=== PATIENT | female | born 1950 | race Two or more races ===

== ENCOUNTER 2018-11-13 16:17 | Emergency (ER) | payer SELFPAY ==
[~2018-11-13] VITALS: Ht 157.5 cm; Wt 53.1 kg
[2018-11-13 16:24] VITALS: BP 145/70
[2018-11-13 17:15] LABS: Basophils # (auto) 0.1 uL; Basophils % (auto) 0.6 % (0.0-2.0); Chloride 101 mmol/L (98-107); Eosinophils # (auto) 0.1 uL; Eosinophils % (auto) 0.4 % (0.0-7.0); Hematocrit 48.9 % (36.0-46.0); Hemoglobin 16.3 g/dL (12.2-16.2); Lymphocytes # (auto) 1.9 uL; Lymphocytes % (auto) 13.7 % (10.0-50.0); Mean Corpuscular Hemoglobin 29.3 pg (28.0-32.0); Mean Corpuscular Hgb Conc. 33.3 g/dL (32.0-36.0); Mean Corpuscular Volume 88.2 fL (80.0-100.0); Monocytes # (auto) 0.7 uL; Monocytes % (auto) 5.2 % (0.0-12.0); Neutrophils # (auto) 11.1 uL; Neutrophils % (auto) 80.1 % (37.0-80.0); Nucleated Red Blood Cells % 0.1 %; Platelet Count (auto) 371 10^3/uL (140-450); Potassium 3.5 mmol/L (3.5-5.1); Red Blood Cells 5.54 10^6/uL (4.0-5.20); Red Cell Distribution Width 13.5 % (11.8-14.3); Sodium 137 mmol/L (136-145); White Blood Cell 13.8 10^3/uL (4.4-10.8)
[2018-11-13 17:15] LABS: Urine Bacteria FEW /hpf (None Seen); Urine Blood Negative /uL (Negative); Urine WBC 55 /hpf (0 - 5)
[2018-11-13 17:18] LABS: Anion Gap 11 (5-15); Blood Urea Nitrogen 17 mg/dL (7-18); Calcium 8.9 mg/dL (8.5-10.1); Carbon Dioxide 25 mmol/L (21-32); Glucose 110 mg/dL (74-106)
[2018-11-13 17:23] LABS: Alanine Aminotransferase 43 U/L (13-56); Alkaline Phosphatase 84 U/L (45-117); Aspartate Aminotransferase 51 U/L (15-37); BUN/Creatinine Ratio 18.7; Bilirubin, Total 0.8 mg/dL (0.2-1.0); GFR African American 79 mL/min; GFR Non-African American 65 mL/min; Total Protein 8.1 g/dL (6.4-8.2)
[2018-11-13] MEDS ORDERED: SODIUM CHLORIDE 0.9% 500 ML IVB ONE (19:17)
[2018-11-13] MEDS ORDERED: LIDOCAINE VISCOUS 2% 15ML UD PO ONE (19:30)
[2018-11-13] MEDS ORDERED: ALUM & MAG HYDROX-SIMETH LIQ(MAALOX) 30 ML PO ONE (19:30)
[2018-11-13] MEDS ORDERED: ONDANSETRON ODT 4 MG TAB PO ONE (19:30)
[2018-11-13] MEDS ORDERED: DONNATAL 5ml ORAL Elix (BELLADONNA ALK-PHENOBARB) PO ONE (19:30)
[2018-11-13] MEDS ORDERED: cefTRIAXone 1GM/50ML D5W 50 ML IV ONE (19:30)
[2018-11-13] MEDS ORDERED: LEVOFLOXACIN 500MG 100 ML IV ONE (19:45)
[2018-11-13 20:44] LABS: INR 0.94 (0.9-1.15); Partial Thromboplastin Time 26.2 sec (23.78-33.04); Prothrombin Time 10.1 sec (9.27-12.13)
[2018-11-13] MEDS ORDERED: SODIUM CHLORIDE 0.9% 1,000 ML IV SCH (22:15)
[2018-11-13] MEDS ORDERED: TEMAZEPAM 15 MG CAP PO PRN (22:15)
[2018-11-13] MEDS ORDERED: HYDROcodone-ACET 5/325MG TAB PO PRN (22:15)
[2018-11-13] MEDS ORDERED: SODIUM CHLORIDE 0.9% 500 ML IV ONE (22:15)
[2018-11-13] MEDS ORDERED: ONDANSETRON HCL 4 MG/2 ML VIAL IV PRN (22:15)
[2018-11-13] MEDS ORDERED: ACETAMINOPHEN 325 MG TAB PO PRN (22:15)
[2018-11-14] MEDS ORDERED: cefTRIAXone 1GM/50ML D5W 50 ML IV SCH (09:00)
[2018-11-14] MEDS ORDERED: AZITHROMYCIN 500MG/ 250ML 250 ML IV SCH (10:00)
[2018-11-14] MEDS ORDERED: FAMOTIDINE 20 MG TAB PO SCH (10:00)
== END 2018-11-13 22:29 | disposition left against medical advice (07) ==
LOC: ER 16:41
DX: K85.90 Acute pancreatitis without necrosis or infection, unspecified (principal); J18.9 Pneumonia, unspecified organism; I48.91 Unspecified atrial fibrillation; N39.0 Urinary tract infection, site not specified; Z53.29 Procedure and treatment not carried out because of patient's decision for other reasons
CPT/HCPCS: 36415; 71046; 74176; 80053; 81001; 83690; 84484; 85025; 85610; 85730; 87086; 93005